=== PATIENT | male | born 1985 | race Caucasian/White ===

== ENCOUNTER → 2019-10-27 09:52 | Outpatient (CLI) | payer OTHER, SELFPAY ==
--- NOTE | ~2019-10-27 | XR_ITS ---
EXAMINATION: XR knee LT 3V, XR knee RT 3V DATE: 10/27/2019 10:50 INDICATION: Bilateral knee/patellar pain TECHNIQUE: 1. [place] and standing AP and lateral views of the left knee were obtained. 2. [place] and standing AP and lateral views of the right knee were obtained. COMPARISON: None. FINDINGS: Alignment is normal at both knees. No fracture. There is mild joint space narrowing at the medial com partment of the left knee. Joint spaces in the lateral and patellofemoral compartments of the left kn ee and throughout the right knee are normal. Soft tissues are unremarkable with no joint effusion at either knee. IMPRESSION: 1. Mild osteoarthritis at the medial compartment of the left knee. Otherwise unremarkable bilateral k nee radiographs. Reviewed, dictated and finalized at location A. IMPRESSION: 1. Mild osteoarthritis at the medial compartment of the left knee. Otherwise un remarkable bilateral knee radiographs.
--- NOTE | ~2019-10-27 | XR_ITS ---
XR hip RT min 2V DATE: 10/27/2019 10:50 INDICATION: Right hip pain TECHNIQUE: AP, lateral views COMPARISON: None FINDINGS: No fracture or dislocation, avascular necrosis or bone destruction. The right hip joint spa ce is preserved. The pubic symphysis and right sacroiliac joint appear normal. IMPRESSION: Negative right hip Reviewed, dictated and finalized at location B. IMPRESSION: Negative right hip
== END ==
PROVIDERS: PCP Nurse Practitioner Family; Visit Provider Nurse Practitioner Family
DX: M25.551 Pain in right hip (principal); M25.562 Pain in left knee; M25.561 Pain in right knee; M17.12 Unilateral primary osteoarthritis, left knee
CPT/HCPCS: 73502; 73562